=== PATIENT | male | born 1955 | race Caucasian/White ===

== ENCOUNTER 2019-02-20 09:00 | Observation (INO) | payer MEDICARE, MEDICAID ==
--- NOTE | 2019-02-20 09:46 | C.PDOC ---
History Of Present Illness 63 year old male with Hx of high cholesterol presents with chest pain since approximately 7am. Patient reports the pain is to the center chest and radiates down to the stomach area. He states this is a first time occurrence and desc ribes the pain to be a burning sensation, not tearing in nature. Patient notes he took an antacid with no relief but did not take aspirin. He notes having SOB at that time but not currently. Denies fever, chills, nausea, vomiting, night sweats, or leg swelling. Time Seen by Provider: 02/20/19 09:46 Chief Complaint (Nursing): Chest Pain History Per: Patient History/Exam Limitations: no limitations Onset/Duration Of Symptoms: Hrs Current Symptoms Are (Timing): Still Present Modifying Factors: None Exacerbating Factors: None Alleviating Factors: None Recent travel outside of the [place]: No Past Medical History Reviewed: Historical Data, Nursing Documentation, Vital Signs Vital Signs: Last Vital Signs Temp 97.6 F 02/20/19 09:09 Pulse 58 L 02/20/19 09:09 Resp 18 02/20/19 09:09 BP 149/92 H 02/20/19 09:09 Pulse Ox 100 02/20/19 09:09 Primary Care Provider: Yuliana Agarwal - Medical History PMH: Hypercholesterolemia Denies: Chronic Kidney Disease [facility] ENDOSC POLYPECTOMY OF LG INTEST (07/21/14) Family History: States: Unknown Family Hx - Social History Hx Alcohol Use: No Hx Substance Use: No - Immunization History Hx Tetanus Toxoid Vaccination: No Hx Influenza Vaccination: No Hx Pneumococcal Vaccination: No Review Of Systems Constitutional: Negative for: Fever, Chills, Sweats, Weakness Eyes: Negative for: Pain ENT: Negative for: Ear Pain, Nose Pain, Mouth Pain, Throat Pain Cardiovascular: Positive for: Chest Pain. Negative for: Palpitations, Orthopnea, Paroxysmal Noc. Dyspnea, Edema, Light Headedness Respiratory: Negative for: Cough, Shortness of Breath, Hemoptysis, SOB with Excertion, Pleuritic Pain, Sputum Gastrointestinal: Negative for: Nausea, Vomiting, Abdominal Pain, Diarrhea, Constipation, Melena, Hematochezia, Hematemesis Genitourinary: Negative for: Dysuria, Frequency, Incontinence, Hematuria, Penile Discharge Musculoskeletal: Negative for: Back Pain Skin: Negative for: Rash Neurological: Negative for: Weakness, Numbness Physical Exam - Physical Exam Appears: Well, Non-toxic Skin: Normal Color, Warm Head: Atraumatic, Normacephalic Eye(s): bilateral: Normal Inspection Nose: Normal, No Flaring, No Discharge, No Epistaxis, No Septal Hematoma, No Other Oral Mucosa: Moist Tongue: Normal Appearing, No Swelling, No Lesions Throat: Normal, No Erythema, No Exudate, No Drooling Neck: Normal, Supple, Other (no meingeal signs) Chest: Symmetrical, No Tenderness Cardiovascular: Rhythm Regular, No Friction Rub, No Murmur, No JVD Respiratory: Normal Breath Sounds, No Rales, No Rhonchi, No Stridor, No Wheezing Gastrointestinal/Abdominal: Normal Exam, Soft, No Tenderness, No Organomegaly, No Mass, No Distention, No Guarding, No Hernia, No Ascites Back: Normal Inspection, No CVA Tenderness, No Vertebral Tenderness Extremity: Normal ROM (x4) Neurological/Psych: Oriented x3, Normal Speech, Normal Cognition Gait: Steady ED Course And Treatment - Laboratory Results Result Diagrams: 02/21/19 07:55 02/21/19 07:55 ECG: Interpreted By Me, Viewed By Me ECG Rhythm: Sinus Bradycardia ECG Interpretation: Normal Rate From EC O2 Sat by Pulse Oximetry: 100 (Room air) Pulse Ox Interpretation: Normal Medical Decision Making Medical Decision Makin yr old male p/w chest pain. No previous work up. No fall or trauma. No tearing like nature of pain. No pleuritic chest pain or sob. Given no previous w/u outpt and time course of chest pain <6 hours prior, will likely need obs and serial trops. Impression: ACS vs gastritis Aspirin and pepcid given HEART score: 5 Labs ordered, first trop is negative CXR was unremarkable Discussed with hospitalist cardiac nurse practitioner, Dr. Florence, who accepts patient to his s ervice. pt in NAD, agreeable to plan. Disposition - Disposition Disposition: HOSPITALIZED Disposition Time: 10:29 Condition: GOOD - Clinical Impression Clinical Impression: Chest pain - Scribe Statement The provider has reviewed the documentation as recorded by the Scribe Hugo Ndiaye All medical record entries made by the Scribe were at my direction and personally dictated by me. I have reviewed the chart and agree that the record accurately reflects my personal performance of the history, physical exam, medical decision making, and the department course for this patient. I have also personally directed, reviewed, and agree with the discharge instructions and disposition.
[2019-02-20 09:47] LABS: BASO % 0.7 % (0.0-2.0); EOS # 0.2 K/uL (0.0-0.7); MONO # 0.5 K/uL (0.0-0.8)
[2019-02-20 09:52] LABS: EOS % 4.5 % (0.0-4.0); HEMOGLOBIN 13.8 g/dL (12.0-18.0); LYMPH # 1.7 K/uL (1.0-4.3); LYMPH % 34.5 % (20.0-40.0); MEAN CELL VOLUME 82.6 fL (80.0-94.0); MEAN CORPUSCULAR HEMOGLOBIN 29.7 pg (27.0-31.0); MEAN PLATELET VOLUME 8.5 fL (7.2-11.7); MONO % 10.1 % (0.0-10.0); NEUT # 2.4 K/uL (1.8-7.0); NEUT % 50.2 % (50.0-75.0); NRBC % 0.2 % (0.0-2.0); RBC 4.63 Mil/uL (4.40-5.90); RED CELL DISTRIBUTION WIDTH 13.8 % (11.5-14.5); WHITE BLOOD COUNT 4.8 K/uL (4.8-10.8)
[2019-02-20 09:55] LABS: INR 1.1; PARTIAL THROMBOPLASTIN TIME 31.3 SECONDS (21-34); PROTHROMBIN TIME 11.5 SECONDS (9.7-12.2)
[2019-02-20 10:05] LABS: ALB/GLOB RATIO 1.6 (1.0-2.1); ALBUMIN 4.1 g/dL (3.5-5.0); ALT/SGPT 29 U/L (21-72); AST/SGOT 33 U/L (17-59); BLOOD UREA NITROGEN 16 mg/dL (9-20); CALCIUM 9.1 mg/dl (8.6-10.4); GFR NON-AFRICAN AMERICAN > 60; LIPASE 40 U/L (23-300)
[2019-02-20] MEDS ORDERED: Aspirin 325 mg EC Tablets PO ONE (10:40)
[2019-02-20] MEDS ORDERED: Aspirin 325 mg EC Tablets PO STA (10:41)
--- NOTE | 2019-02-20 11:14 | CP.PCM.HP ---
<Yves Pinon - Last Filed: 02/20/19 16:01> History of Present Illness - History of Present Illness History of Present Illness: Medicine History and Physical for Hospitalist Service, Dr. Florence This is a 63 y o male with PMhx HLD, constipation, onychomycosis, who presents to the ED with c/o chest pain that started at 7 am this morning. States the pain awoke him from sleep, denies any inciting factors prior to onset of symptoms or hx of this occurring before. Denies prior hx of [place] or st[place]. Localizes pain to mid chest with no associated radiation to arm or neck. Rated pain at time to be 8/10, currently states pain has improved since being in the ED to 5-6/10. Describes pain as sharp in quality. Also reports reproduction of chest pain when he tries to swallow. Notes associated shortness of breath/chest tightness when the chest pain started, not c/o this currently. Denies headache, fever, chills, dizziness, v/d, abdominal pain, urinary complaints, or other symptoms. Also reports chronic hx of constipation, states that he was prescribed Miralax in the past by his PCP for his symptoms of pain with straining, but has not started taking it at home. Denies blood in stool or hx of hemorrhoids. Also c/o fungal nail infection present on his b/l thumbnails which has been present for the past year. Pt states he has been compliant with taking topical antifungal ointment but states that the infection has not gone away. PMHx: as noted above PSurgHx: denies Allergies: NKDA Home meds: none Fam hx: Dad from prostate cancer at age 76, Mom when pt was 5 y o from heart disease Soc hx: Former light cigarette smoker 1 cigarette/week for total 8 y, quit many years ago PMD: Dr. Yuliana Velasquez Present on Admission - Present on Admission Any Indicators Present on Admission: No Review of Systems - Constitutional Constitutional: absent: Chills, Fatigue, Fever, Headache, Malaise, Night Sweats, Weight Loss - EENT Eyes: absent: Change in Vision - Cardiovascular Cardiovascular: Chest Pain. absent: Dyspnea on Exertion, Edema, Pain Radiating to Arm/Neck/Jaw, Palpitations - Respiratory Respiratory: Dyspnea. absent: Cough, Wheezing - Gastrointestinal Gastrointestinal: Nausea. absent: Abdominal Pain, Constipation, Diarrhea, Vomiting - Genitourinary Genitourinary: Nocturia, Urinary Urgency. absent: Difficulty Urinating, Dysuria - Integumentary Integumentary: absent: Rash - Neurological Neurological: absent: Dizziness, Headaches, Loss of Vision, Tingling, Tremor, Weakness Past Patient History - Past Medical History & Family History Past Medical History?: Yes - Past Social History Smoking Status: Never Smoked - CARDIAC Hx Hypercholesterolemia: Yes - PULMONARY Hx Respiratory Disorders: No - NEUROLOGICAL Hx Neurological Disorder: No - HEENT Hx HEENT Problems: No - RENAL Hx Chronic Kidney Disease: No - ENDOCRINE/METABOLIC Hx Endocrine Disorders: No - HEMATOLOGICAL/ONCOLOGICAL Hx Blood Disorders: No - INTEGUMENTARY Hx Dermatological Problems: No - MUSCULOSKELETAL/RHEUMATOLOGICAL Hx Musculoskeletal Disorders: No - GASTROINTESTINAL Hx Gastrointestinal Disorders: No - GENITOURINARY/GYNECOLOGICAL Hx Genitourinary Disorders: No - PSYCHIATRIC Hx Substance Use: No - SURGICAL HISTORY Hx Surgeries: No - ANESTHESIA Hx Anesthesia: Yes Hx Anesthesia Reactions: No Hx Malignant Hyperthermia: No Meds Home Medications: Home Medication List Medication Instructions Recorded Confirmed Type Aspirin [Ecotrin] 81 mg PO DAILY #30 tabec 02/21/19 Rx Polyethylene Glycol 3350 [Miralax] 17 gm PO DAILY #30 powd.pack 02/21/19 Rx Rosuvastatin Calcium [Crestor] 5 mg PO HS #30 tablet 02/21/19 Rx Allergies/Adverse Reactions: Allergies Allergy/AdvReac Type Severity Reaction Status Date / Time No Known Allergies Allergy Verified 07/21/14 08:18 Physical Exam - Constitutional Appears: Non-toxic, No Acute Distress - Head Exam Head Exam: ATRAUMATIC, NORMOCEPHALIC - Eye Exam Eye Exam: EOMI, Normal appearance, PERRL - ENT Exam ENT Exam: Mucous Membranes Moist - Respiratory Exam Respiratory Exam: Clear to Auscultation Bilateral, NORMAL BREATHING PATTERN. a bsent: Rales, Rhonchi, Wheezes Additional comments: Chest wall tenderness in area below xiphoid process in midline - Cardiovascular Exam Cardiovascular Exam: REGULAR RHYTHM, +S1, +S2. absent: Gallop, Rubs, Systolic Murmur - GI/Abdominal Exam GI & Abdominal Exam: Normal Bowel Sounds, Soft. absent: Distended, Tenderness - Expanded Rectal Exam Expanded Expanded Rectal Exam: NORMAL INSPECTION, NORMAL RECTAL TONE. absent: Bloody Stool, Hemorrhoids, Fecal Impaction, Tenderness - Extremities Exam Extremities exam: Positive for: full ROM, normal capillary refill, normal inspection, pedal pulses present. Negative for: pedal edema, tenderness - Back Exam Back exam: FULL ROM, NORMAL INSPECTION. absent: paraspinal tenderness - Neurological Exam Neurological exam: Alert, CN II-XII Intact, Oriented x3, Reflexes Normal - Skin Skin Exam: Dry, Intact, Normal Color, Warm Results - Vital Signs Recent Vital Signs: Last Vital Signs Temp 97.6 F 02/20/19 09:09 Pulse 55 L 02/20/19 10:43 Resp 13 02/20/19 10:43 BP 124/74 02/20/19 10:43 Pulse Ox 100 02/20/19 10:44 - Labs Result Diagrams: 02/20/19 09:33 02/20/19 09:33 Labs: Laboratory Results - last 24 hr 02/20/19 02/20/19 02/20/19 09:33 09:33 09:33 WBC 4.8 RBC 4.63 Hgb 13.8 Hct 38.3 MCV 82.6 MCH 29.7 MCHC 36.0 RDW 13.8 Plt Count 164 MPV 8.5 Neut % (Auto) 50.2 Lymph % (Auto) 34.5 [place] % (Auto) 10.1 H Eos % (Auto) 4.5 H Baso % (Auto) 0.7 Neut # (Auto) 2.4 Lymph # (Auto) 1.7 [place] # (Auto) 0.5 Eos # (Auto) 0.2 Baso # (Auto) 0.0 PT 11.5 INR 1.1 APTT 31.3 Sodium 137 Potassium 3.8 Chloride 102 Carbon Dioxide 24 Anion Gap 14 BUN 16 Creatinine 0.8 Est GFR ( Amer) > 60 Est GFR (Non-Af Amer) > 60 Random Glucose 117 H Calcium 9.1 Total Bilirubin 0.4 AST 33 ALT 29 Alkaline Phosphatase 50 Total Creatine Kinase 68 CK-MB (Mass) 0.80 Troponin I < 0.0120 Total Protein 6.7 Albumin 4.1 Globulin 2.5 Albumin/Globulin Ratio 1.6 Lipase 40 Assessment & Plan - Assessment and Plan (Free Text) Assessment: This is a 63 y o male with PMhx HLD, constipation, onychomycosis, who presents to the ED with c/o chest pain that started at 7 am this morning. R/o ACS as etiology of symptoms. Cardiology consulted, Dr. Velasco. Plan: Chest pain r/o ACS -Admit to tele -SANDRA neg on admission, f/u repeat x2 -EKG on admission demonstrates L axis deviation, otherwise no acute St-t wave changes noted -Cardiology consulted, Dr. Velasco, recs appreciated -A1c, thyroid studies ordered -ASA daily Bradycardia -HR in 50s range -Will hold beta farooq therapy at this time -Cont to monitor Urinary urgency -May be 2/2 BPH -Can f/u outpatient with PCP after d/c for further w/u Onychomycosis -Lotrimin bid -Can f/u outpatient with PCP or dermatology for oral rx Hx HLD -Crestor 5 mg PO hs -Lipid panel ordered Hx constipation -Rectal exam negative for occult blood, no hemorrhoids appreciated on exam -C/w Miralax daily PPX: -DVT: SCD, Heparin q12h -GI: Protonix daily <Deepa Florence - Last Filed: 02/21/19 17:24> Results - Vital Signs Recent Vital Signs: Last Vital Signs Temp 97.4 F L 02/21/19 15:49 Pulse 61 02/21/19 15:49 Resp 20 02/21/19 15:49 BP 110/67 02/21/19 15:49 Pulse Ox 99 02/21/19 15:49 - Labs Result Diagrams: 02/21/19 07:55 02/21/19 07:55 Labs: Laboratory Results - last 24 hr 02/21/19 02/21/19 02/21/19 07:55 07:55 07:55 WBC 5.1 RBC 4.65 Hgb 13.8 Hct 38.9 MCV 83.6 MCH 29.8 MCHC 35.6 RDW 14.1 Plt Count 141 MPV 8.9 Neut % (Auto) 53.6 Lymph % (Auto) 31.4 [place] % (Auto) 10.3 H Eos % (Auto) 4.3 H Baso % (Auto) 0.4 Neut # (Auto) 2.7 Lymph # (Auto) 1.6 [place] # (Auto) 0.5 Eos # (Auto) 0.2 Baso # (Auto) 0.0 Sodium 137 Potassium 3.6 Chloride 103 Carbon Dioxide 27 Anion Gap 11 BUN 14 Creatinine 0.9 Est GFR ( Amer) > 60 Est GFR (Non-Af Amer) > 60 Random Glucose 92 D Calcium 9.2 Phosphorus 4.1 Magnesium 1.9 Total Bilirubin 0.4 AST 31 ALT 35 Alkaline Phosphatase 40 Total Creatine Kinase 48 L CK-MB (Mass) 0.63 Troponin I < 0.0120 Total Protein 6.6 Albumin 3.8 Globulin 2.9 Albumin/Globulin Ratio 1.3 Attending/Attestation - Attestation I have personally seen and examined this patient.: Yes I have fully participated in the care of the patient.: Yes I have reviewed all pertinent clinical information: Yes Notes (Text): Patient has no complain,no chest pain,no sob,clear lungs d/c home and follow Dr velasco .Pending ECHO report follow out pt 02/21/19 17:22
[2019-02-20] MEDS: POLYETHYLENE GLYCOL 3350 17 GM/Dose PACKET PO SCH (11:58)
--- NOTE | 2019-02-20 12:29 | RAD ---
Date of service: 02/20/2019 HISTORY: CHEST PAIN COMPARISON: None available. TECHNIQUE: Chest PA and lateral FINDINGS: LUNGS: No focal consolidation is seen. PLEURA: No pleural effusion is identified. CARDIOVASCULAR: Heart size is within normal limits. No atherosclerotic calcification present. OSSEOUS STRUCTURES: No acute fracture identified. VISUALIZED UPPER ABDOMEN: Unremarkable. OTHER FINDINGS: None. IMPRESSION: No acute cardiopulmonary process seen.
[2019-02-20 13:12] LABS: HDL CHOLESTEROL 44 mg/dL (30-70)
[2019-02-20 13:22] LABS: LDL CHOLESTEROL 151 mg/dL (0-129)
[2019-02-20] MEDS: Pantoprazole 40 mg EC Tab PO SCH (14:08)
[2019-02-20 16:27] VITALS: RESP 20
[2019-02-20 17:07] LABS: CK-MB 0.91 ng/mL (0.0-3.38)
[2019-02-20] MEDS: Clotrimazole 1% Cream(30 gm) TOP SCH (18:30)
--- NOTE | 2019-02-21 07:05 | CP.PCM.CON ---
History of Present Illness - History of Present Illness History of Present Illness: CC: Chest/Epi gatsric Pain This is a 63 y o male with PMhx HLD, constipation, onychomycosis, who presents to the ED with c/o chest pain that started at 7 am this morning. States the pain awoke him from sleep, denies any inciting factors prior to onset of symptoms or hx of this occurring before. Denies prior hx of [place] or stoke. Localizes pain to mid chest with no associated radiation to arm or neck. Rated pain at time to be 8/10, currently states pain has improved since being in the ED to 5-6/10. Describes pain as sharp in quality. Also reports reproduction of chest pain when he tries to swallow. Notes associated shortness of breath/chest tightness when the chest pain started, not c/o this currently. Denies headache, fever, chills, dizziness, v/d, abdominal pain, urinary complaints, or other symptoms. Also reports chronic hx of constipation, states that he was prescribed Miralax in the past by his PCP for his symptoms of pain with straining, but has not started taking it at home. Denies blood in stool or hx of hemorrhoids. Also c/o fungal nail infection present on his b/l thumbnails which has been present for the past year. Pt states he has been compliant with taking topical antifungal ointment but states that the infection has not gone away. PMHx: as noted above PSurgHx: denies Allergies: NKDA Home meds: none Fam hx: Dad from prostate cancer at age 76, Mom when pt was 5 y o from heart disease Soc hx: Former light cigarette smoker 1 cigarette/week for total 8 y, quit many years ago PMD: Dr. Yuliana Velasquez Present on Admission - Present on Admission Any Indicators Present on Admission: No Review of Systems - Constitutional Constitutional: absent: Chills, Fatigue, Fever, Headache, Malaise, Night Sweats, Weight Loss - EENT Eyes: absent: Change in Vision - Cardiovascular Cardiovascular: Chest Pain. absent: Dyspnea on Exertion, Edema, Pain Radiating to Arm/Neck/Jaw, Palpitations - Respiratory Respiratory: Dyspnea. absent: Cough, Wheezing - Gastrointestinal Gastrointestinal: Nausea. absent: Abdominal Pain, Constipation, Diarrhea, Vomiting - Genitourinary Genitourinary: Nocturia, Urinary Urgency. absent: Difficulty Urinating, Dysuria - Integumentary Integumentary: absent: Rash - Neurological Neurological: absent: Dizziness, Headaches, Loss of Vision, Tingling, Tremor, Weakness Meds Allergies/Adverse Reactions: Allergies Allergy/AdvReac Type Severity Reaction Status Date / Time No Known Allergies Allergy Verified 07/21/14 08:18 Physical Exam - Constitutional Appears: Non-toxic, No Acute Distress - Head Exam Head Exam: ATRAUMATIC, NORMOCEPHALIC - Eye Exam Eye Exam: EOMI, Normal appearance, PERRL - ENT Exam ENT Exam: Mucous Membranes Moist - Respiratory Exam Respiratory Exam: Clear to Auscultation Bilateral, NORMAL BREATHING PATTERN. absent: Rales, Rhonchi, Wheezes Additional comments: Chest wall tenderness in area below xiphoid process in midline - Cardiovascular Exam Cardiovascular Exam: REGULAR RHYTHM, +S1, +S2. absent: Gallop, Rubs, Systolic Murmur - GI/Abdominal Exam GI & Abdominal Exam: Normal Bowel Sounds, Soft. absent: Distended, Tenderness - Expanded Rectal Exam Expanded Expanded Rectal Exam: NORMAL INSPECTION, NORMAL RECTAL TONE. absent: Bloody Stool, Hemorrhoids, Fecal Impaction, Tenderness - Extremities Exam Extremities exam: Positive for: full ROM, normal capillary refill, normal inspection, pedal pulses present. Negative for: pedal edema, tenderness - Back Exam Back exam: FULL ROM, NORMAL INSPECTION. absent: paraspinal tenderness - Neurological Exam Neurological exam: Alert, CN II-XII Intact, Oriented x3, Reflexes Normal - Skin Skin Exam: Dry, Intact, Normal Color, Warm Assessment & Plan - Assessment and Plan (Free Text) Assessment: This is a 63 y o male with PMhx HLD, constipation, onychomycosis, who presents to the ED with c/o chest pain that started at 7 am this morning. R/o ACS Plan: Chest pain r/o ACS -Admit to tele -R/O [place] Symptoms are atypical Angina unlikely Check ECHO in am Bradycardia -HR in 50s range -Will hold beta farooq therapy at this time -Cont to monitor Urinary urgency -May be 2/2 BPH -Can f/u outpatient with PCP after d/c for further w/u Onychomycosis -Lotrimin bid -Can f/u outpatient with PCP or dermatology for oral rx Hx HLD -Crestor 5 mg PO hs -Lipid panel ordered Hx constipation -Rectal exam negative for occult blood, no hemorrhoids appreciated on exam -C/w Miralax daily PPX: -DVT: SCD, Heparin q12h -GI: Protonix daily Past Patient History - Past Medical History & Family History Past Medical History?: Yes - Past Social History Smoking Status: Never Smoked - CARDIAC Hx Hypercholesterolemia: Yes - PULMONARY Hx Respiratory Disorders: No - NEUROLOGICAL Hx Neurological Disorder: No - HEENT Hx HEENT Problems: No - RENAL Hx Chronic Kidney Disease: No - ENDOCRINE/METABOLIC Hx Endocrine Disorders: No - HEMATOLOGICAL/ONCOLOGICAL Hx Blood Disorders: No - INTEGUMENTARY Hx Dermatological Problems: No - MUSCULOSKELETAL/RHEUMATOLOGICAL Hx Musculoskeletal Disorders: No - GASTROINTESTINAL Hx Gastrointestinal Disorders: No - GENITOURINARY/GYNECOLOGICAL Hx Genitourinary Disorders: No - PSYCHIATRIC Hx Substance Use: No - SURGICAL HISTORY Hx Surgeries: No - ANESTHESIA Hx Anesthesia: Yes Hx Anesthesia Reactions: No Hx Malignant Hyperthermia: No Meds Allergies/Adverse Reactions: Allergies Allergy/AdvReac Type Severity Reaction Status Date / Time No Known Allergies Allergy Verified 07/21/14 08:18 - Medications Medications: Current Medications Aspirin (Aspirin Chewable) 81 mg PO DAILY [facility] Clotrimazole (Lotrimin 1%) 1 gm TOP BID [facility] Last Admin: 02/20/19 18:30 Dose: 1 appl Heparin Sodium (Porcine) (Heparin) 5,000 units SC Q8 [facility] Last Admin: 02/21/19 06:25 Dose: 5,000 units Pantoprazole Sodium (Protonix Ec Tab) 40 mg PO DAILY [facility] Last Admin: 02/20/19 14:08 Dose: 40 mg Polyethylene Glycol (Miralax) 17 gm PO DAILY [facility] Last Admin: 02/20/19 11:58 Dose: 17 gm Rosuvastatin Calcium (Crestor) 5 mg PO HS [facility] Last Admin: 02/20/19 21:33 Dose: 5 mg Results - Vital Signs Recent Vital Signs: Last Vital Signs Temp 98.1 F 02/20/19 23:00 Pulse 58 L 02/21/19 01:00 Resp 20 02/20/19 23:00 BP 103/65 02/20/19 23:00 Pulse Ox 99 02/20/19 23:00 - Labs Result Diagrams: 02/20/19 09:33 02/20/19 09:33 Labs: Laboratory Results - last 24 hr 02/20/19 02/20/19 02/20/19 09:33 09:33 09:33 WBC 4.8 RBC 4.63 Hgb 13.8 Hct 38.3 MCV 82.6 MCH 29.7 MCHC 36.0 RDW 13.8 Plt Count 164 MPV 8.5 Neut % (Auto) 50.2 Lymph % (Auto) 34.5 [place] % (Auto) 10.1 H Eos % (Auto) 4.5 H Baso % (Auto) 0.7 Neut # (Auto) 2.4 Lymph # (Auto) 1.7 [place] # (Auto) 0.5 Eos # (Auto) 0.2 Baso # (Auto) 0.0 PT 11.5 INR 1.1 APTT 31.3 Sodium 137 Potassium 3.8 Chloride 102 Carbon Dioxide 24 Anion Gap 14 BUN 16 Creatinine 0.8 Est GFR ( Amer) > 60 Est GFR (Non-Af Amer) > 60 Random Glucose 117 H Hemoglobin A1c Calcium 9.1 Total Bilirubin 0.4 AST 33 ALT 29 Alkaline Phosphatase 50 Total Creatine Kinase 68 CK-MB (Mass) 0.80 Troponin I < 0.0120 Total Protein 6.7 Albumin 4.1 Globulin 2.5 Albumin/Globulin Ratio 1.6 Triglycerides 221 H Cholesterol 229 H LDL Cholesterol Direct 151 H HDL Cholesterol 44 Lipase 40 Free T4 TSH 3rd Generation 1.31 02/20/19 02/20/19 02/20/19 11:14 14:04 16:39 WBC RBC Hgb Hct MCV MCH MCHC RDW Plt Count MPV Neut % (Auto) Lymph % (Auto) [place] % (Auto) Eos % (Auto) Baso % (Auto) Neut # (Auto) Lymph # (Auto) [place] # (Auto) Eos # (Auto) Baso # (Auto) PT INR APTT Sodium Potassium Chloride Carbon Dioxide Anion Gap BUN Creatinine Est GFR ( Amer) Est GFR (Non-Af Amer) Random Glucose Hemoglobin A1c 6.0 Calcium Total Bilirubin AST ALT Alkaline Phosphatase Total Creatine Kinase 65 CK-MB (Mass) 0.91 Troponin I < 0.0120 Total Protein Albumin Globulin Albumin/Globulin Ratio Triglycerides Cholesterol LDL Cholesterol Direct HDL Cholesterol Lipase Free T4 1.05 TSH 3rd Generation
--- NOTE | 2019-02-21 07:55 | CP.PCM.PN ---
"Subjective - Date & Time of Evaluation Date of Evaluation: 02/21/19 Time of Evaluation: 07:54 - Subjective Subjective: PGY-[address] Florence Service Patient seen and examined at bedside. Per nursing no acute events occurred overnight . Patient denies any fevers, chills, headaches, abdominal pain, dizziness, headaches, or any other complaints. Objective - Vital Signs/Intake and Output Vital Signs (last 24 hours): Temp Pulse Resp BP Pulse Ox 98.1 F 58 L 20 103/65 99 02/20/19 23:00 02/21/19 01:00 02/20/19 23:00 02/20/19 23:00 02/20/19 23:00 - Medications Medications: Current Medications Aspirin (Aspirin Chewable) 81 mg PO DAILY [facility] Clotrimazole (Lotrimin 1%) 1 gm TOP BID [facility] Last Admin: 02/20/19 18:30 Dose: 1 appl Heparin Sodium (Porcine) (Heparin) 5,000 units SC Q8 [facility] Last Admin: 02/21/19 06:25 Dose: 5,000 units Pantoprazole Sodium (Protonix Ec Tab) 40 mg PO DAILY [facility] Last Admin: 02/20/19 14:08 Dose: 40 mg Polyethylene Glycol (Miralax) 17 gm PO DAILY [facility] Last Admin: 02/20/19 11:58 Dose: 17 gm Rosuvastatin Calcium (Crestor) 5 mg PO HS [facility] Last Admin: 02/20/19 21:33 Dose: 5 mg - Labs Labs: 02/20/19 09:33 02/20/19 09:33 PT 11.5 SECONDS (9.7-12.2) 02/20/19 09:33 INR 1.1 02/20/19 09:33 APTT 31.3 SECONDS (21-34) 02/20/19 09:33 - Head Exam Head Exam: ATRAUMATIC, NORMAL INSPECTION - Eye Exam Eye Exam: EOMI, Normal appearance, PERRL. absent: Periorbital tenderness Pupil Exam: NORMAL ACCOMODATION, PERRL. absent: Irregular, Unequal - ENT Exam ENT Exam: Mucous Membranes Moist, Normal Oropharynx - Respiratory Exam Respiratory Exam: Clear to Ausculation Bilateral, NORMAL BREATHING PATTERN. absent: Chest Wall Tenderness, Prolonged Expiratory Phase, Respiratory Distress - Cardiovascular Exam Cardiovascular Exam: REGULAR RHYTHM, +S1, +S2. absent: Gallop, Rubs - GI/Abdominal Exam GI & Abdominal Exam: Soft, Normal Bowel Sounds. absent: Rigid, Hyperactive Bowel Sounds - Extremities Exam Extremities Exam: Full ROM, Normal Inspection. absent: Joint Swelling, Pedal Edema - Back Exam Back Exam: NORMAL INSPECTION. absent: CVA tenderness (R), paraspinal tenderness - Neurological Exam Neurological Exam: Alert, Awake, CN II-XII Intact, Oriented x3 - Psychiatric Exam Psychiatric exam: Normal Affect, Normal Mood. absent: Depressed - Skin Skin Exam: Dry, Intact. absent: Erythema Assessment and Plan - Assessment and Plan (Free Text) Plan: This is a 63 y o male with PMhx HLD, constipation, onychomycosis, who presents to the ED with c/o chest pain that started at 7 am this morning. R/o ACS as etiology of symptoms. Cardiology consulted, Dr. Velasco. Plan: Chest pain r/o ACS -Admit to tele -SANDRA (-)x2 -EKG on admission demonstrates L axis deviation, otherwise no acute St-t wave changes noted -Cardiology consulted, Dr. Velasco, recs appreciated -A1c: 6% -TSH: 1.31 |Free T4: 1.05 -ASA daily Bradycardia -HR in 50s range -Will hold beta farooq therapy at this time -Cont to monitor Urinary urgency -May be 2/2 BPH -Can f/u outpatient with PCP after d/c for further w/u Onychomycosis -Lotrimin bid -Can f/u outpatient with PCP or dermatology for oral rx Hx HLD -Crestor 5 mg PO hs -Lipid panel| Cholesterol 229 | HDL 44| LDL 151 | Triglycerides 221 Hx constipation -Rectal exam negative for occult blood, no hemorrhoids appreciated on exam -C/w Miralax daily PPX: -DVT: SCD, Heparin q12h -GI: Protonix daily Plan discussed with Attending Dr. Florence. Mendel Partida, PGY2"
[2019-02-21 08:31] LABS: ALB/GLOB RATIO 1.3 (1.0-2.1); ALBUMIN 3.8 g/dL (3.5-5.0); ALT/SGPT 35 U/L (21-72); AST/SGOT 31 U/L (17-59); BLOOD UREA NITROGEN 14 mg/dL (9-20); CALCIUM 9.2 mg/dl (8.6-10.4); GFR NON-AFRICAN AMERICAN > 60
[2019-02-21 08:36] LABS: BASO % 0.4 % (0.0-2.0); EOS # 0.2 K/uL (0.0-0.7); EOS % 4.3 % (0.0-4.0); HEMOGLOBIN 13.8 g/dL (12.0-18.0); LYMPH # 1.6 K/uL (1.0-4.3); LYMPH % 31.4 % (20.0-40.0); MEAN CELL VOLUME 83.6 fL (80.0-94.0); MEAN CORPUSCULAR HEMOGLOBIN 29.8 pg (27.0-31.0); MEAN CORPUSCULAR HGB CONC 35.6 g/dL (33.0-37.0); MEAN PLATELET VOLUME 8.9 fL (7.2-11.7); MONO # 0.5 K/uL (0.0-0.8); MONO % 10.3 % (0.0-10.0); NEUT # 2.7 K/uL (1.8-7.0); NEUT % 53.6 % (50.0-75.0); NRBC % 0.2 % (0.0-2.0); RBC 4.65 Mil/uL (4.40-5.90); RED CELL DISTRIBUTION WIDTH 14.1 % (11.5-14.5); WHITE BLOOD COUNT 5.1 K/uL (4.8-10.8)
[2019-02-21 08:47] LABS: CK-MB 0.63 ng/mL (0.0-3.38)
[2019-02-21] MEDS: POLYETHYLENE GLYCOL 3350 17 GM/Dose PACKET PO SCH (09:42)
[2019-02-21] MEDS: Pantoprazole 40 mg EC Tab PO SCH (09:43)
[2019-02-21] MEDS: Clotrimazole 1% Cream(30 gm) TOP SCH (09:47)
--- NOTE | 2019-02-21 14:38 | CP.PCM.DIS ---
"<Mendel Partida - Last Filed: 02/21/19 18:21> Provider - Provider Date of Admission: 02/20/19 10:29 Attending physician: Deepa Florence MD Consults: 02/20/19 11:07 Cardiology Consult Routine Comment: Consulting Provider: Elvin Velasco Consulting Physician: Elvin Velasco Reason for Consult: chest pain, hx HLD, please eval Time Spent in preparation of Discharge (in minutes): 45 Hospital Course - Lab Results Lab Results: Most Recent Lab Values WBC 5.1 K/uL (4.8-10.8) 02/21/19 07:55 RBC 4.65 Mil/uL (4.40-5.90) 02/21/19 07:55 Hgb 13.8 g/dL (12.0-18.0) 02/21/19 07:55 Hct 38.9 % (35.0-51.0) 02/21/19 07:55 MCV 83.6 fL (80.0-94.0) 02/21/19 07:55 MCH 29.8 pg (27.0-31.0) 02/21/19 07:55 MCHC 35.6 g/dL (33.0-37.0) 02/21/19 07:55 RDW 14.1 % (11.5-14.5) 02/21/19 07:55 Plt Count 141 K/uL (130-400) 02/21/19 07:55 MPV 8.9 fL (7.2-11.7) 02/21/19 07:55 Neut % (Auto) 53.6 % (50.0-75.0) 02/21/19 07:55 Lymph % (Auto) 31.4 % (20.0-40.0) 02/21/19 07:55 Weber % (Auto) 10.3 % (0.0-10.0) H 02/21/19 07:55 Eos % (Auto) 4.3 % (0.0-4.0) H 02/21/19 07:55 Baso % (Auto) 0.4 % (0.0-2.0) 02/21/19 07:55 Neut # (Auto) 2.7 K/uL (1.8-7.0) 02/21/19 07:55 Lymph # (Auto) 1.6 K/uL (1.0-4.3) 02/21/19 07:55 Weber # (Auto) 0.5 K/uL (0.0-0.8) 02/21/19 07:55 Eos # (Auto) 0.2 K/uL (0.0-0.7) 02/21/19 07:55 Baso # (Auto) 0.0 K/uL (0.0-0.2) 02/21/19 07:55 PT 11.5 SECONDS (9.7-12.2) 02/20/19 09:33 INR 1.1 02/20/19 09:33 APTT 31.3 SECONDS (21-34) 02/20/19 09:33 Sodium 137 mmol/L (132-148) 02/21/19 07:55 Potassium 3.6 mmol/L (3.6-5.2) 02/21/19 07:55 Chloride 103 mmol/L (98-107) 02/21/19 07:55 Carbon Dioxide 27 mmol/L (22-30) 02/21/19 07:55 Anion Gap 11 (10-20) 02/21/19 07:55 BUN 14 mg/dL (9-20) 02/21/19 07:55 Creatinine 0.9 mg/dL (0.8-1.5) 02/21/19 07:55 Est GFR ( Amer) > 60 02/21/19 07:55 Est GFR (Non-Af Amer) > 60 02/21/19 07:55 Random Glucose 92 mg/dL (75-110) D 02/21/19 07:55 Hemoglobin A1c 6.0 % (4.2-6.5) 02/20/19 11:14 Calcium 9.2 mg/dl (8.6-10.4) 02/21/19 07:55 Phosphorus 4.1 mg/dL (2.5-4.5) 02/21/19 07:55 Magnesium 1.9 mg/dL (1.6-2.3) 02/21/19 07:55 Total Bilirubin 0.4 mg/dL (0.2-1.3) 02/21/19 07:55 AST 31 U/L (17-59) 02/21/19 07:55 ALT 35 U/L (21-72) 02/21/19 07:55 Alkaline Phosphatase 40 U/L (38-126) 02/21/19 07:55 Total Creatine Kinase 48 U/L (55-170) L 02/21/19 07:55 CK-MB (Mass) 0.63 ng/mL (0.0-3.38) 02/21/19 07:55 Troponin I < 0.0120 ng/mL (0.00-0.120) 02/21/19 07:55 Total Protein 6.6 g/dL (6.3-8.3) 02/21/19 07:55 Albumin 3.8 g/dL (3.5-5.0) 02/21/19 07:55 Globulin 2.9 gm/dL (2.2-3.9) 02/21/19 07:55 Albumin/Globulin Ratio 1.3 (1.0-2.1) 02/21/19 07:55 Triglycerides 221 mg/dL (0-149) H 02/20/19 09:33 Cholesterol 229 mg/dL (0-199) H 02/20/19 09:33 LDL Cholesterol Direct 151 mg/dL (0-129) H 02/20/19 09:33 HDL Cholesterol 44 mg/dL (30-70) 02/20/19 09:33 Lipase 40 U/L (23-300) 02/20/19 09:33 Free T4 1.05 ng/dL (0.78-2.19) 02/20/19 14:04 TSH 3rd Generation 1.31 mIU/L (0.46-4.68) 02/20/19 09:33 - Hospital Course Hospital Course: This is a 63 y o male with PMhx HLD, constipation, onychomycosis, who presents to the ED with c/o chest pain that started at 7 am this morning. States the pain awoke him from sleep, denies any inciting factors prior to onset of symptoms or hx of this occurring before. Denies prior hx of UT or stoke. Localizes pain to mid chest with no associated radiation to arm or neck. Rated pain at time to be 8/10, currently states pain has improved since being in the ED to 5-6/10. Describes pain as sharp in quality. Also reports reproduction of chest pain when he tries to swallow. Notes associated shortness of breath/chest tightness when the chest pain started, not c/o this currently. Denies headache, fever, chills, dizziness, v/d, abdominal pain, urinary complaints, or other symptoms. Also reports chronic hx of constipation, states that he was prescribed Miralax in the past by his PCP for his symptoms of pain with straining, but has not started taking it at home. Denies blood in stool or hx of hemorrhoids. Also c/o fungal nail infection present on his b/l thumbnails which has been present for the past year. Pt states he has been compliant with taking topical antifungal ointment but states that the infection has not gone away. PMHx: as noted above PSurgHx: denies Allergies: NKDA Home meds: none Fam hx: Dad from prostate cancer at age 76, Mom when pt was 5 y o from heart disease Soc hx: Former light cigarette smoker 1 cigarette/week for total 8 y, quit many years ago PMD: Dr. Yuliana Velasquez Patient was admitted for chest pain while admitted to the hospital. Patient was found to have left axis deviation on ekg with no st/t changes. Patient had cardiac enzymes tested that were negative in a series of three. Patient was also found to be bradycardic and as a results his beta farooq was held on admission. Triglycerides:221|Cholesterole:229| LDL:151| HDL: 41 .Patient was started on ASA therapy. Cardiology was consulted and he was seen by Dr. Velasco. Patient subsequently had a Echocardiogram that was reviewed by Dr. Velasco. Patient was cleared to be discharged with the following instructions. Imaging: Echocardiogram: Pending final read Discharge Instructions: 1. F/u with PMD within 5 days. 2.F/u with Glass Breaker Dr. Velasco within 5 days of discharge. 3.Return to hospital for any new or worsening symptoms. Medications: 1.ASA 81MG PO DAILY, #30, No refills 2.Crestor 5 mg PO HS, #30, No refills 3.Miralax 17gm PO DAILY, #30, No refills. Mendel Partida, PGY2 Discharge Exam - Head Exam Head Exam: ATRAUMATIC, NORMAL INSPECTION - Eye Exam Eye Exam: EOMI, Normal appearance Pupil Exam: NORMAL ACCOMODATION, PERRL - ENT Exam ENT Exam: Mucous Membranes Moist, Normal Exam - Neck Exam Neck exam: Normal Inspection - Respiratory Exam Respiratory Exam: Clear to PA & Lateral, NORMAL BREATHING PATTERN. absent: Decreased Breath Sounds, Respiratory Distress, Stridor - Cardiovascular Exam Cardiovascular Exam: REGULAR RHYTHM, +S1, +S2 - GI/Abdominal Exam GI & Abdominal Exam: Normal Bowel Sounds, Unremarkable. absent: Distended, Mass - Extremities Exam Extremities exam: full ROM - Back Exam Back exam: NORMAL INSPECTION. absent: CVA tenderness (L), CVA tenderness (R) - Neurological Exam Neurological exam: CN II-XII Intact, Normal Gait, Oriented x3, Reflexes Normal - Psychiatric Exam Psychiatric exam: Normal Affect, Normal Mood Discharge Plan - Discharge Medications Prescriptions: RX: Aspirin [Ecotrin] 81 mg PO DAILY #30 tabec Polyethylene Glycol 3350 [Miralax] 17 gm PO DAILY #30 powd.pack RX: Rosuvastatin Calcium [Crestor] 5 mg PO HS #30 tablet - Follow Up Plan Condition: GOOD Disposition: HOME/ ROUTINE Instructions: Polyethylene Glycol 3350, Chest Pain, Aspirin, Rosuvastatin Referrals: Elvin Velasco MD [Staff Provider] - <Deepa Florence - Last Filed: 02/21/19 18:32> Provider - Provider Date of Admission: 02/20/19 10:29 Attending physician: Deepa Florence MD Consults: 02/20/19 11:07 Cardiology Consult Routine Comment: Consulting Provider: Elvin Velasco Consulting Physician: Elvin Velasco Reason for Consult: chest pain, hx HLD, please eval Hospital Course - Lab Results Lab Results: Most Recent Lab Values WBC 5.1 K/uL (4.8-10.8) 02/21/19 07:55 RBC 4.65 Mil/uL (4.40-5.90) 02/21/19 07:55 Hgb 13.8 g/dL (12.0-18.0) 02/21/19 07:55 Hct 38.9 % (35.0-51.0) 02/21/19 07:55 MCV 83.6 fL (80.0-94.0) 02/21/19 07:55 MCH 29.8 pg (27.0-31.0) 02/21/19 07:55 MCHC 35.6 g/dL (33.0-37.0) 02/21/19 07:55 RDW 14.1 % (11.5-14.5) 02/21/19 07:55 Plt Count 141 K/uL (130-400) 02/21/19 07:55 MPV 8.9 fL (7.2-11.7) 02/21/19 07:55 Neut % (Auto) 53.6 % (50.0-75.0) 02/21/19 07:55 Lymph % (Auto) 31.4 % (20.0-40.0) 02/21/19 07:55 Weber % (Auto) 10.3 % (0.0-10.0) H 02/21/19 07:55 Eos % (Auto) 4.3 % (0.0-4.0) H 02/21/19 07:55 Baso % (Auto) 0.4 % (0.0-2.0) 02/21/19 07:55 Neut # (Auto) 2.7 K/uL (1.8-7.0) 02/21/19 07:55 Lymph # (Auto) 1.6 K/uL (1.0-4.3) 02/21/19 07:55 Weber # (Auto) 0.5 K/uL (0.0-0.8) 02/21/19 07:55 Eos # (Auto) 0.2 K/uL (0.0-0.7) 02/21/19 07:55 Baso # (Auto) 0.0 K/uL (0.0-0.2) 02/21/19 07:55 PT 11.5 SECONDS (9.7-12.2) 02/20/19 09:33 INR 1.1 02/20/19 09:33 APTT 31.3 SECONDS (21-34) 02/20/19 09:33 Sodium 137 mmol/L (132-148) 02/21/19 07:55 Potassium 3.6 mmol/L (3.6-5.2) 02/21/19 07:55 Chloride 103 mmol/L (98-107) 02/21/19 07:55 Carbon Dioxide 27 mmol/L (22-30) 02/21/19 07:55 Anion Gap 11 (10-20) 02/21/19 07:55 BUN 14 mg/dL (9-20) 02/21/19 07:55 Creatinine 0.9 mg/dL (0.8-1.5) 02/21/19 07:55 Est GFR ( Amer) > 60 02/21/19 07:55 Est GFR (Non-Af Amer) > 60 02/21/19 07:55 Random Glucose 92 mg/dL (75-110) D 02/21/19 07:55 Hemoglobin A1c 6.0 % (4.2-6.5) 02/20/19 11:14 Calcium 9.2 mg/dl (8.6-10.4) 02/21/19 07:55 Phosphorus 4.1 mg/dL (2.5-4.5) 02/21/19 07:55 Magnesium 1.9 mg/dL (1.6-2.3) 02/21/19 07:55 Total Bilirubin 0.4 mg/dL (0.2-1.3) 02/21/19 07:55 AST 31 U/L (17-59) 02/21/19 07:55 ALT 35 U/L (21-72) 02/21/19 07:55 Alkaline Phosphatase 40 U/L (38-126) 02/21/19 07:55 Total Creatine Kinase 48 U/L (55-170) L 02/21/19 07:55 CK-MB (Mass) 0.63 ng/mL (0.0-3.38) 02/21/19 07:55 Troponin I < 0.0120 ng/mL (0.00-0.120) 02/21/19 07:55 Total Protein 6.6 g/dL (6.3-8.3) 02/21/19 07:55 Albumin 3.8 g/dL (3.5-5.0) 02/21/19 07:55 Globulin 2.9 gm/dL (2.2-3.9) 02/21/19 07:55 Albumin/Globulin Ratio 1.3 (1.0-2.1) 02/21/19 07:55 Triglycerides 221 mg/dL (0-149) H 02/20/19 09:33 Cholesterol 229 mg/dL (0-199) H 02/20/19 09:33 LDL Cholesterol Direct 151 mg/dL (0-129) H 02/20/19 09:33 HDL Cholesterol 44 mg/dL (30-70) 02/20/19 09:33 Lipase 40 U/L (23-300) 02/20/19 09:33 Free T4 1.05 ng/dL (0.78-2.19) 02/20/19 14:04 TSH 3rd Generation 1.31 mIU/L (0.46-4.68) 02/20/19 09:33 Attending/Attestation - Attestation I have personally seen and examined this patient.: Yes I have fully participated in the care of the patient.: Yes I have reviewed all pertinent clinical information, including history, physical exam and plan: Yes Notes (Text): Plan discussed with the patient . recommend to follow his primary care and the road cleaner out pt.Pending echo report which he will follow out pt with cradiologist 02/21/19 18:31"
[2019-02-21] MEDS ORDERED: Pneumococcal 23-Valent Vaccine IM ONE (15:00)
[2019-02-21 15:55] VITALS: PULSE 61; TEMP 97.4
[2019-02-21 15:56] VITALS: BP 110/67
--- NOTE | 2019-02-21 20:59 | CARD ---
APPROVED REPORT Date of service: 02/21/2019 EXAM: Two-dimensional and M-mode echocardiogram with Doppler and color Doppler. INDICATION Dyspnea Chest Pain Palpitations RISK FACTORS Hyperlipidemia 2D DIMENSIONS IVSd0.7 (0.7-1.1cm)Aortic Root (2D)3.4 (2.0-3.7cm) LVDd5.3 (3.9-5.9cm)PWd0.6 (0.7-1.1cm) LA Wygvpr53 (18-58mL)LVDs3.5 (2.5-4.0cm) FS (%) 34.9 %LVEF (%)63.7 (>50%) LVEF (Foreman's)60 %IVC0.00 cm M-Mode DIMENSIONS Left Atrium (MM)3.97 (2.5-4.0cm)IVSd0.68 (0.7-1.1cm) Aortic Root3.42 (2.2-3.7cm)LVDd5.66 (4.0-5.6cm) Aortic Cusp Exc.1.82 (1.5-2.0cm)PWd0.65 (0.7-1.1cm) FS (%) 36 %LVDs3.64 (2.0-3.8cm) TAPSE22.13 cmLVEF (%)64 (>50%) Aortic Valve AI P 1/2 [id number] Mitral Valve MV E Yovjwptd62.0cm/sMV A Kocmxirv81.9cm/sE/A ratio1.4 TDI Lateral E' Peak V9.32cm/sMedial E' Peak V5.77cm/sE/Lateral E'7.2 E/Medial E'11.6 Tricuspid Valve TR Peak [id number]/sTR Peak Gr.[id number] LEFT VENTRICLE The left ventricle is normal size. There is normal left ventricular wall thickness. Left ventricle systolic function is normal. The Ejection Fraction is 60-65%. There is normal LV segmental wall motion. Tissue Doppler imaging reveals abnormal left ventricular diastolic dysfunction. RIGHT VENTRICLE The right ventricle is normal size. There is normal right ventricular wall thickness. The right ventricular systolic function is normal. ATRIA The left atrium size is normal. The right atrium size is normal. The interatrial septum is intact with no evidence for an atrial septal defect. AORTIC VALVE The aortic valve is normal in structure. There is mild aortic regurgitation. There is no aortic valvular stenosis. There is no aortic valvular vegetation. MITRAL VALVE The mitral valve is normal in structure. There is no evidence of mitral valve prolapse. There is no mitral valve stenosis. Mitral regurgitation is mild. TRICUSPID VALVE The tricuspid valve is normal in structure. There is mild tricuspid regurgitation. Right ventricular systolic pressure is estimated at less than 30 mmHg. There is no pulmonary hypertension. PULMONIC VALVE The pulmonic valve is not well visualized. There is mild pulmonic valvular regurgitation. GREAT VESSELS The aortic root is normal in size. PERICARDIAL EFFUSION There is no significant pericardial effusion. <Conclusion> Left ventricle systolic function is normal. The Ejection Fraction is 60-65%. Diastolic dysfunction. There is mild aortic regurgitation. Mitral regurgitation is mild. There is mild tricuspid regurgitation. There is no pulmonary hypertension. There is mild pulmonic valvular regurgitation.
[2019-02-22 16:14] VITALS: O2SAT 100
== END 2019-02-21 16:04 | disposition home or self-care (01) ==
LOC: C.ER 09:00 → C.9E 10:29 → C.5S 10:58
PROVIDERS: ADMIT Internal Medicine; ATTEND Internal Medicine
DX: R07.9 Chest pain, unspecified (principal); R00.1 Bradycardia, unspecified; R39.15 Urgency of urination; B35.1 Tinea unguium; Z23 Encounter for immunization; E78.5 Hyperlipidemia, unspecified; Z79.82 Long term (current) use of aspirin; Z79.899 Other long term (current) drug therapy; E78.00 Pure hypercholesterolemia, unspecified; Z87.891 Personal history of nicotine dependence; Z80.42 Family history of malignant neoplasm of prostate
CPT/HCPCS: 36415; 71046; 80053; 80061; 83036; 83690; 83735; 84100; 84439; 84443; 84484; 85025; 85610; 85730; 90732; 93306; 96374; 99284; G0009; G0378; J1644